=== PATIENT | female | born 1955 | race Caucasian/White ===

== ENCOUNTER 2022-05-26 19:44 | Observation (INO) | payer MEDICARE, OTHER, SELFPAY ==
[2022-05-26] VITALS (8 sets, daily range): BP systolic 154–168; BP diastolic 76–102; PULSE 82–96; RESP 13–26; TEMP 36.1–36.3; O2SAT 79–97; BMI 39.3
--- NOTE | 2022-05-26 20:01 | EKG12_ITS ---
Test Reason : DYSRHYTHMIA Blood Pressure : / mmHG Vent. Rate : 077 BPM Atrial Rate : 077 BPM P-R Int : 180 ms QRS Dur : 078 ms QT Int : 374 ms P-R-T Axes : 025 000 023 degrees QTc Int : 423 ms Normal sinus rhythm Septal infarct , age undetermined Abnormal ECG Confirmed by EULOGIO EDGAR, BRANDO ([id number]), editorial cartoonist JOSELITO SIMMS ([id number]) on 05/28/2022 10:06:56 AM Referred By: MELISSA Confirmed By:BRANDO KRISHNAN MD
--- NOTE | 2022-05-26 20:04 | EDS_ITS ---
HPI History of Present Illness Chief Complaint: Shortness of Breath Detail of Chief Complaint: Short of breath, cough Informant: patient Onset/Context/Timing Onset: Days (6 days) Context: Gradual Onset Current Severity: Moderate Maximum Severity: Moderate Narrative Narrative: Patient presents with shortness of breath and cough. Symptoms began 5 days ago. She has not measured a fever. No chest pain. She is bringing up green-colored sputum. She went to urgent care today where her O2 sats were noted to be 88%. She was sent to the emergency room. [facility] Medical History (Updated 05/27/22 @ 00:[address] Natalya Castro MD) Asthma DVT (deep venous thrombosis) GERD (gastroesophageal reflux disease) Hypothyroid Osteoporosis Pulmonary embolism Home Medications Eliquis 10 mg PO.IVFORM BID 05/26/22 [History Last Taken Unknown] Myrbetriq 25 mg PO/SL DAILY 05/26/22 [History Last Taken Unknown] calcium phosphate,dibasic 77 mg-vitamin D3 400 unit tablet 1 tab PO 05/26/22 [History Last Taken Unknown] clobetasol 0.05 % scalp solution 1 applic topical 05/26/22 [History Last Taken Unknown] diclofenac sodium 1 % topical gel 1 ea topical 05/26/22 [History Last Taken Unknown] duloxetine 20 mg capsule,delayed release mg PO 05/26/22 [History Last Taken Unknown] estradiol 0.1 mg OTHER QWEEK 05/26/22 [History Last Taken Unknown] fluticasone furoate 100 mcg-vilanterol 25 mcg/dose inhalation powder (Breo Ellipta) 1 inh inhalation DAILY 05/26/22 [History Last Taken Unknown] furosemide 20 mg tablet 20 mg PO PRN PRN water retention 05/26/22 [History Last Taken Unknown] hydrocortisone 2.5 % topical cream applic topical 05/26/22 [History Last Taken Unknown] ketoconazole 2 % topical cream 1 applic topical 05/26/22 [History Last Taken Unknown] levothyroxine 25 mcg tablet 25 mcg PO DAILY 05/26/22 [History Last Taken Unknown] losartan 50 mg tablet 50 mg PO DAILY 05/26/22 [History Last Taken Unknown] magnesium 250 mg tablet 250 mg PO DAILY 05/26/22 [History Last Taken Unknown] montelukast 10 mg tablet 10 mg PO DAILY 05/26/22 [History Last Taken Unknown] pantoprazole 40 mg tablet,delayed release 40 mg PO DAILY 05/26/22 [History Last Taken Unknown] potassium chloride 10 mEq tablet,extended release 10 meq PO PRN PRN suppliment 05/26/22 [History Last Taken Unknown] tiotropium bromide 18 mcg capsule with inhalation device (Spiriva with HandiHaler) 18 mcg inhalation 05/26/22 [History Last Taken Unknown] vitamin B12 500 mcg-folic acid 400 mcg tablet 1 tab PO DAILY 05/26/22 [History Last Taken Unknown] vitamin E (dl, acetate) 400 unit chewable tablet 400 unit PO 05/26/22 [History Last Taken Unknown] Allergy/AdvReac Type Severity Reaction Status Date / Time acetaminophen [From Percocet] Allergy Nausea Verified 05/26/22 20:12 erythromycin base Allergy Diarrhea Verified 05/26/22 20:12 oxycodone Allergy Nausea Verified 05/26/22 20:12 Social History Smoking Status: Never smoker ROS ROS ED Constitutional Constitutional ED: Denies chills or fever(s) Eyes Eyes: Denies change in vision or discharge from eye(s) ENT ENT ED: Denies discharge from eye(s), rhinorrhea or sore throat Cardiovascular Cardiovascular: Denies chest pain or palpitations Respiratory/Chest Respiratory/Chest: Reports cough, dyspnea, sputum and other Details: Chest congestion Gastrointestinal Gastrointestinal: Denies abdominal pain, diarrhea, nausea or vomiting Genitourinary Genitourinary ED: Denies dysuria Musculoskeletal Musculoskeletal: Denies back pain or extremity pain Integumentary Denies Abrasions or rash Neurologic Neurologic: Denies headache(s) or weakness Allergic/Immunologic Allergic/Immunologic ED: Denies lip swelling or urticaria EXAM Physical Exam Const Vital Signs: 05/26/22 19:46 05/26/22 20:03 05/26/22 20:08 Temperature 97 F L 97.3 F L Temperature Source Temporal Temporal Pulse Rate 90 82 Respiratory Rate 26 H 23 H Respiratory Effort Short of Breath Respiratory Depth Shallow Respiratory Pattern Normal Blood Pressure 164/102 H 168/91 H Blood Pressure Mean 122 116 Pulse Ox 84 95 Oxygen Delivery Method Room Air Nasal Cannula Nasal Cannula Oxygen Flow Rate (L/min) 4 4 05/26/22 21:00 05/26/22 20:37 05/26/22 20:37 Temperature Temperature Source Pulse Rate 89 93 Respiratory Rate 13 16 20 H Respiratory Effort Normal Short of Breath Respiratory Depth Shallow Respiratory Pattern Normal Normal Blood Pressure 154/76 H Blood Pressure Mean 102 Pulse Ox 94 97 Oxygen Delivery Method Nasal Cannula Nasal Cannula Oxygen Flow Rate (L/min) 4 3 05/26/22 21:16 05/26/22 21:16 05/26/22 22:10 Temperature Temperature Source Pulse Rate 96 Respiratory Rate 15 Respiratory Effort Respiratory Depth Respiratory Pattern Blood Pressure 164/86 H Blood Pressure Mean 112 Pulse Ox 79 95 96 Oxygen Delivery Method Room Air Room Air Nasal Cannula Oxygen Flow Rate (L/min) 3 3 05/26/22 22:59 Temperature Temperature Source Pulse Rate 92 Respiratory Rate 16 Respiratory Effort Respiratory Depth Respiratory Pattern Normal Blood Pressure Blood Pressure Mean Pulse Ox Oxygen Delivery Method Oxygen Flow Rate (L/min) Positive well nourished and well developed General Appearance ED: well developed HEENT Reports normocephalic and head/scalp atraumatic Eyes PERRL and EOMs intact bilaterally Neck supple Chest Wall inspection of chest normal and palpation of chest normal Resp Resp Narrative: Lung sounds diminished. Cardio regular rate and regular rhythm GI normal to inspection, nondistended, normoactive bowel sounds Palpation: soft Back/Spine no CVA tenderness Extremity normal to inspection Extremity Narrative: 2+ bilateral lower extremity edema. Increased edema noted over her feet, symmetric, at baseline per her report. Neuro oriented x3 and no sensory deficits noted Sensorium / Orientation: alert Motor Exam: strength 5/5 throughout Psych mental status grossly normal Skin no rashes or lesions noted MDM MDM MDM Narrative Medical decision making narrative: This time examination patient is on 2 L nasal cannula satting 89%. I turned her up to 3 L. Lab work, chest x-ray, blood cultures obtained. COVID and influenza swab ordered. Patient given DuoNeb along with aerosols. Lab Data Attestation: I reviewed the patient's lab results. Labs: Laboratory Results - last 24 hr 05/26/22 05/26/22 05/26/22 20:10 20:10 20:10 WBC 5.6 RBC 4.28 Hgb 13.2 Hct 40.0 MCV 93.5 MCH 30.8 MCHC 33.0 RDW Std Deviation 43.4 RDW Coeff of Kellen 12.6 Plt Count 162 MPV 8.9 Immature Gran % (Auto) 0.400 Neut % (Auto) 82.4 H Lymph % (Auto) 5.7 L Cecil % (Auto) 8.6 Eos % (Auto) 2.5 Baso % (Auto) 0.4 Absolute Neuts (auto) 4.6 Absolute Lymphs (auto) 0.32 L Nucleated RBC % 0 Differential Comment SCANNED Sodium 132 L Potassium 4.1 Chloride 96 L Carbon Dioxide 32.0 Anion Gap 4 L BUN 7 Creatinine 0.40 L Estim Creat Clear Calc 43.18 Est GFR (MDRD) Af Amer 206 Est GFR (MDRD) Non-Af 170 BUN/Creatinine Ratio 17.6 Glucose 98 Lactic Acid 0.6 Calcium 9.0 Troponin I High Sens 11 Radiography Chest X-Ray - ED: 1 View, Read by ED Physician, Chronic Changes and - (Questionable left-sided infiltrate versus scarring.) Diagnostic Testing: Clinical Impression(s) from Imaging Studies Chest X-Ray 05/26/22 21:08 IMPRESSION: 1. Asymmetric elevation right hemidiaphragm with overlying airspace disease, mild, most likely representing atelectasis with alveolar filling process not excluded. 2. Linear opacity periphery left lung highly suggestive of atelectasis and/or scarring. Electronically Signed: Uriah Frazier DO at 22:13 EDT , EKG Initial EKG: Attestation: I personally reviewed and interpreted this EKG as follows: Interpretation: Sinus Rhythm (Sinus at 77 with no acute ischemia.) Treatment and Re-Evaluation Narrative: Following aerosol treatments patient's O2 sat was around 91% on room air. While sitting at rest she dropped to 79% and had to be placed back on 3 L nasal cannula. Lab work is unremarkable. Chest x-ray per my interpretation was chronic changes. Radiology interpretation is reviewed. EKG reveals no ischemia. Patient does have some improved aeration on auscultation. She still has moist sounding cough. She is given a dose of Mucinex as well as steroids. 2 additional albuterol treatments are given and patient sent for CTA of the chest. On return to the ED from CAT scan patient is lying flat in bed with her oxygen on. Her O2 sat dropped to 72%. This did improve when sitting upright taking deep breaths. There is currently difficulty in transferring the radiology images. I reviewed the CT scan I do not see an obvious PE. It does appear that there is an area of scarring in the left lung, I do not like this is a focal infiltrate. With patient dropping her O2 sats significantly I do feel she would benefit from observation with aerosol treatments and steroids. I will give her a single dose of doxycycline here along with Elisabeth Sam. Discharge Plan Triage Chief Complaint: Shortness of Breath ED Provider: Natalya Castro Dx/Rx/DC Orders Clinical Impression: Asthma exacerbation, Insufficiency, respiratory, acute, URI (upper respiratory infection) Prescriptions: No Action levothyroxine 25 mcg Tablet 25 mcg PO DAILY pantoprazole 40 mg Tablet,Delayed Release (Dr/Ec) 40 mg PO DAILY vitamin E (dl, acetate) 400 unit Tablet,Chewable 400 unit PO fluticasone furoate-vilanterol [Breo Ellipta] 100-25 mcg/dose Blister With Device 1 inh INHALATION DAILY Eliquis 10 mg PO.IVFORM BID Myrbetriq 25 mg PO/SL DAILY Vitamin D (with calcium) 77-400 mg-unit Tablet 1 tab PO vitamin [id number] acid 500-400 mcg Tablet 1 tab PO DAILY Rx Instructions: administer with a meal losartan 50 mg tablet 50 mg PO DAILY Label Comments: TAKE 1 TABLET BY MOUTH EVERY DAY potassium chloride 10 mEq Tablet Extended Release 10 meq PO PRN PRN (Reason: suppliment) hydrocortisone 2.5 % cream TOPICAL Label Comments: Apply to affected AREAS ON face AND ears TWICE DAILY FOR FOURTEEN DAYS when flared montelukast 10 mg tablet 10 mg PO DAILY Label Comments: TAKE 1 TABLET BY MOUTH EVERY DAY magnesium 250 mg Tablet 250 mg PO DAILY furosemide 20 mg Tablet 20 mg PO PRN PRN (Reason: water retention) ketoconazole 2 % cream 1 applic TOPICAL Label Comments: Apply TWICE DAILY to rash clobetasol 0.05 % solution 1 applic TOPICAL Label Comments: Apply TWICE DAILY to SCALP, ears, AND neck FOR FOURTEEN DAYS then WEDNESDAY, WEDNESDAY, WEDNESDAY Spiriva with HandiHaler 18 mcg capsule, w/inhalation device 18 mcg INHALATION Label Comments: PLEASE SEE ATTACHED FOR DETAILED DIRECTIONS duloxetine 20 mg capsule,delayed release(DR/EC) PO Label Comments: TAKE 2 CAPSULES BY MOUTH AT BEDTIME diclofenac sodium [Voltaren] 1 % Gel 1 ea TOPICAL estradiol 0.1 mg OTHER QWEEK Primary Care Provider: [facility] Doctor,Out of Referrals: [facility] Doctor,Out of [Primary Care Provider] - Disposition Disposition: Acute Care Hospital [facility]
[2022-05-26 20:27] LABS: Absolute Lymphocyte Count 0.32 X10^3/uL (0.83-4.51); Absolute Neutrophil Count 4.6 X10^3/uL (2.0-7.7); Basophil# 0.02 X10^3/uL; Basophil% 0.4 % (0-1); Eosinophil# 0.14 X10^3/uL; Eosinophils% 2.5 % (0-5); Hemoglobin 13.2 g/dL (12.0-15.0); Lymphocyte # 0.32 X10^3/ul (0.83-4.51); Lymphocyte % 5.7 % (19-41); Mean Corpuscular Hgb 30.8 pg (27.0-32.0); Mean Corpuscular Volume 93.5 fL (81-99); Mean Platelet Vol. 8.9 fl (6.2-12.0); Monocyte# 0.48 X10^3/uL; Monocyte% 8.6 % (0-10); NRBC Flagged by Analyzer 0 % (0-5); Neutrophil # 4.61 X10^3/uL (2.7-7.7); Neutrophil % 82.4 % (47-70); POSITIVE DIFFERENTIAL YES; Platelet Count 162 K/mm3 (150-450); RBC Distribution Width CV 12.6 % (11.6-14.6); RBC Distribution Width SD 43.4 fl (35.1-43.9); Red Blood Count 4.28 M/mm3 (4.2-5.4); White Blood Count 5.6 K/mm3 (4.4-11.0)
[2022-05-26] MEDS: Ipratropium/Albuterol Sulfate 3 ML AMPUL.NEB INHALATION (20:37)
[2022-05-26] MEDS: Albuterol 2.5 MG/3 ML VIAL.NEB. INHALATION ×4 (20:37→23:06)
[2022-05-26 20:51] LABS: Anion Gap 4 (5-15); BUN 7 mg/dL (7-18); BUN/Creat Ratio 17.6 RATIO (10-20); Chloride 96 mmol/L (98-107); EST Glomerular Filtration Rate 170 mL/min (>60); Est Glom Filt Rate - Afr Amer 206 mL/min (>60); Estimated Creatinine Clearance 43.18 ml/min; Glucose 98 mg/dL (74-106); Lactic Acid 0.6 mmol/L (0.4-1.9); Potassium 4.1 mmol/L (3.5-5.1); Sodium Level 132 mmol/L (136-145); Troponin-I HS 11 pg/mL (3.0-54.0)
[2022-05-26 20:52] LABS: Differential Indicated SCAN CRITERIA MET
--- NOTE | 2022-05-26 21:08 | RAD_ITS ---
INDICATION: sob EXAMINATION/TECHNIQUE: X-RAY - XR Chest 1 View COMPARISON: None. FINDINGS: LINES/DEVICES: None. LUNGS: Asymmetric elevation right hemidiaphragm. Airspace disease overlying the right elevated hemidiaphragm likely representing atelectasis though alveolar filling process not excluded. Lateral periphery left lung shows thin linear opacity highly suggestive of atelectasis and/or scarring. No pleural effusion, nodule or pneumothorax. MEDIASTINUM AND CARDIOVASCULAR STRUCTURES: Normal size and contour of the cardiomediastinal silhouette. No evidence of pulmonary vascular congestion. BONES AND SOFT TISSUES: Bony exostosis inferior acromion on the right may be associated with impingement. Significant lateral curvature proximal lumbar spine, partially visualized. RAD/Chest 1 View (Portable) IMPRESSION: 1. Asymmetric elevation right hemidiaphragm with overlying airspace disease, mild, most likely representing atelectasis with alveolar filling process not excluded. 2. Linear opacity periphery left lung highly suggestive of atelectasis and/or scarring. Electronically Signed: Uriah Frazier DO at 22:13 EDT ,
--- NOTE | 2022-05-26 21:11 | CPS ---
x2 Albuterol given to pt. in ER as well
--- NOTE | 2022-05-26 21:16 | ED.RN ---
Pt resting in bed at 79% on RA. Placed on 6L NC and brought up to 96%. Maintained 93-95% on 3L.
[2022-05-26 21:18] LABS: Differential Comment SCANNED
--- NOTE | 2022-05-26 22:21 | CT_ITS ---
STUDY: CTA CHEST REASON FOR EXAM: Female, 66 years old. dyspnea RADIATION DOSAGE (If Supplied By Facility): CTDIvol = ( 29.23 ) mGy, DLP = ( 524.13 ) mGycm TECHNIQUE: The examination was performed with the intravenous administration of IV 100mL Isovue-370. Post-processing of the angiographic images was performed, with multiplanar reformation and 3D reconstruction. Individualized dose optimization techniques were used for this CT. COMPARISON: None. FINDINGS: Normal enhancement of the main pulmonary artery and right and left pulmonary arteries. Normal enhancement of the bilateral peripheral pulmonary arteries. There is no demonstrated pulmonary embolism. Normal thoracic aorta and visualized great vessels. There is no demonstrated aortic dissection. Mild cardiomegaly. Normal pericardium. Normal mediastinum. Normal hilar regions. Normal visualized trachea and bronchi. The lungs are well expanded. Patchy airspace disease in the right lung base, likely chronic in nature as there is moderately elevated right hemidiaphragm. Otherwise, the lungs are clear without acute airspace disease, consolidation or effusion. Normal pleura. Normal chest wall structures. Normal osseous structures. Normal visualized upper abdomen. Nonenhancing right renal cyst. CT/CTA Chest W/WO Contrast IMPRESSION: Normal CTA chest examination, without a demonstrated pulmonary embolism or arterial dissection. No acute airspace disease. Elevated right hemidiaphragm with chronic atelectasis and/or scarring in the right lung base Electronically Signed: Kp Ann DO at 0:45 EDT ,
--- NOTE | 2022-05-26 23:15 | CPS ---
x1 additional albuterol given to pt. in ER as well
[2022-05-26] MEDS: guaiFENesin 1,200 MG Tablet 1200 MG PO (23:23)
[2022-05-26] MEDS: MethylPREDNISolone 125 MG/2 ML Vial IV (23:25)
[2022-05-26] MEDS: Benzonatate 100 MG Capsule 200 MG PO (23:55)
[2022-05-26] MEDS: Doxycycline 100 MG CAPSULE PO (23:55)
[2022-05-27] VITALS (12 sets, daily range): BP systolic 140–168; BP diastolic 72–89; PULSE 86–103; RESP 16–24; TEMP 36.6–37.5; O2SAT 2–96; BMI 39.9
--- NOTE | 2022-05-27 00:11 | HP.PCM.HOS_ITS ---
HPI - General General Date of Admission: 05/27/22 Date of Service: 05/27/22 Chief Complaint: Cold symptoms HPI Narrative MARILOU POWELL, is a 66 F with a significant history of pulmonary emboli and asthma who presents to the emergency department with cold symptoms that started 4 days prior to presentation. Her symptoms has been worsening. She describes her symptoms as nasal congestion; cough with greenish productive cough. She vomited x1. She reports a sore throat and chest pain associated with cough. She has had some shortness of breath; and some chills. She has had increased wheezes above her baseline. Patient is visiting from [place]. She went to urgent care at the [facility] and her oxygen saturation was found to be 88% on room air. At Emergency Department her initial oxygen saturation was 84% on room air. At one point while in bed at the ED her oxygen saturation was 79%. Also her oxygen saturation was 72% while in bed supine at the ED. At home patient uses 2 L of oxygen. Patient has sleep apnea but she has not be en able to tolerate mask so her outpatient providers decided to leave her on 2 L nasal cannula oxygen at night [facility] Medical History Asthma DVT (deep venous thrombosis) GERD (gastroesophageal reflux disease) Hypothyroid Osteoporosis Pulmonary embolism Home Medications Eliquis 10 mg PO.IVFORM BID 05/26/22 [History Last Taken Unknown] Myrbetriq 25 mg PO/SL DAILY 05/26/22 [History Last Taken Unknown] diclofenac sodium 1 % topical gel 1 ea topical 05/26/22 [History Last Taken Unknown] duloxetine 20 mg capsule,delayed release mg PO 05/26/22 [History Last Taken Unknown] estradiol 0.1 mg OTHER QWEEK 05/26/22 [History Last Taken Unknown] fluticasone furoate 100 mcg-vilanterol 25 mcg/dose inhalation powder (Breo Ellipta) 1 inh inhalation DAILY 05/26/22 [History Last Taken Unknown] furosemide 20 mg tablet 20 mg PO PRN PRN water retention 05/26/22 [History Last Taken Unknown] ketoconazole 2 % topical cream 1 applic topical 05/26/22 [History Last Taken Unknown] levothyroxine 25 mcg tablet 25 mcg PO DAILY 05/26/22 [History Last Taken Un known] losartan 50 mg tablet 50 mg PO DAILY 05/26/22 [History Last Taken Unknown] montelukast 10 mg tablet 10 mg PO DAILY 05/26/22 [History Last Taken Unknown] pantoprazole 40 mg tablet,delayed release 40 mg PO DAILY 05/26/22 [History Last Taken Unknown] potassium chloride 10 mEq tablet,extended release 10 meq PO PRN PRN suppliment 05/26/22 [History Last Taken Unknown] tiotropium bromide 18 mcg capsule with inhalation device (Spiriva with HandiHaler) 18 mcg inhalation 05/26/22 [History Last Taken Unknown] vitamin B12 500 mcg-folic acid 400 mcg tablet 1 tab PO DAILY 05/26/22 [History Last Taken Unknown] vitamin E (dl, acetate) 400 unit chewable tablet 400 unit PO 05/26/22 [History Last Taken Unknown] Allergy/AdvReac Type Severity Reaction Status Date / Time acetaminophen [From Percocet] Allergy Nausea Verified 05/26/22 20:12 erythromycin base Allergy Diarrhea Verified 05/26/22 20:12 oxycodone Allergy Nausea Verified 05/26/22 20:12 Family History Other CVA (cerebral vascular accident) Cancer Surgical History H/O knee surgery H/O shoulder surgery History of bladder surgery History of hip surgery Social History Smoking Status: Never smoker ROS ROS Narrative Pertinent positives and pertinent negatives as noted in HPI. All other systems were reviewed and are negative. Vital Signs Vital Signs Vital Signs: 05/26/22 19:46 05/26/22 20:03 05/26/22 20:08 Temperature 97 F L 97.3 F L Temperature Source Temporal Temporal Pulse Rate 90 82 Respiratory Rate 26 H 23 H Respiratory Effort Short of Breath Respiratory Depth Shallow Respiratory Pattern Normal Blood Pressure 164/102 H 168/91 H Blood Pressure Mean 122 116 Pulse Ox 84 95 Oxygen Delivery Method Room Air Nasal Cannula Nasal Cannula Oxygen Flow Rate (L/min) 4 4 05/26/22 21:00 05/26/22 20:37 05/26/22 20:37 Temperature Temperature Source Pulse Rate 89 93 Respiratory Rate 13 16 20 H Respiratory Effort Normal Short of Breath Respiratory Depth Shallow Respiratory Pattern Normal Normal Blood Pressure 154/76 H Blood Pressure Mean 102 Pulse Ox 94 97 Oxygen Delivery Method Nasal Cannula Nasal Cannula Oxygen Flow Rate (L/min) 4 3 05/26/22 21:16 05/26/22 21:16 05/26/22 22:10 Temperature Temperature Source Pulse Rate 96 Respiratory Rate 15 Respiratory Effort Respiratory Depth Respiratory Pattern Blood Pressure 164/86 H Blood Pressure Mean 112 Pulse Ox 79 95 96 Oxygen Delivery Method Room Air Room Air Nasal Cannula Oxygen Flow Rate (L/min) 3 3 05/26/22 22:59 Temperature Temperature Source Pulse Rate 92 Respiratory Rate 16 Respiratory Effort Respiratory Depth Respiratory Pattern Normal Blood Pressure Blood Pressure Mean Pulse Ox Oxygen Delivery Method Oxygen Flow Rate (L/min) Weight Weight: 97.522 kg Body Mass Index (BMI) 39.3 Physical Exam Narrative Physical exam: General: Well-nourished, well-developed. Head: Normocephalic, atraumatic, no tenderness Eyes: Vision is grossly intact. EOMI ENT, no trauma, moist mucous membranes, no rhinorrhea Neck: Nontender, full range of motion. CVS: Regular rate and rhythm. S1-S2 present. No murmur, gallop or rub. Respiratory : Wheezing; chest wall nontender. Abdomen: Soft, nontender, nondistended, normal bowel sounds, no masses : Deferred Back: Nontender, no CVA tenderness. Extremities: Nontender full range of motion, no trauma Skin: Normal color, no trauma, abrasions Neuro: Alert, oriented, cranial nerves II through XII grossly intact. Psychiatry: Normal mood. Normal affect. Not depressed. Not anxious. Results Lab / Micro Data Result Diagrams: 05/26/22 20:10 05/26/22 20:10 Labs: Laboratory Results - last 24 hr 05/26/22 20:10: WBC 5.6, RBC 4.28, Hgb 13.2, Hct 40.0, MCV 93.5, MCH 30.8, MCHC 33.0, RDW Std Deviation 43.4, RDW Coeff of Kellen 12.6, Plt Count 162, MPV 8.9, Immature Gran % (Auto) 0.400, Neut % (Auto) 82.4 H, Lymph % (Auto) 5.7 L, Hutchinson % (Auto) 8.6, Eos % (Auto) 2.5, Baso % (Auto) 0.4, Absolute Neuts (auto) 4.6, Absolute Lymphs (auto) 0.32 L, Nucleated RBC % 0, Differential Comment SCANNED 05/26/22 20:10: Sodium 132 L, Potassium 4.1, Chloride 96 L, Carbon Dioxide 32.0, Anion Gap 4 L, BUN 7, Creatinine 0.40 L, Estim Creat Clear Calc 43.18, Est GFR (MDRD) Af Amer 206, Est GFR (MDRD) Non-Af 170, BUN/Creatinine Ratio 17.6, Glucose 98, Calcium 9.0, Troponin I High Sens 11 05/26/22 20:10: Lactic Acid 0.6 Micro: Microbiology 05/26/22 20:15 Nasal Secretion SARS-CoV-2 & FLU Antigen (Rapid) - Final Radiology Impression Chest X-Ray 05/26/22 21:08 IMPRESSION: 1. Asymmetric elevation right hemidiaphragm with overlying airspace disease, mild, most likely representing atelectasis with alveolar filling process not excluded. 2. Linear opacity periphery left lung highly suggestive of atelectasis and/or scarring. Electronically Signed: Uriah Frazier, at 22:13 EDT , Assessment & Plan Assessment/Plan (1) Asthma exacerbation: (2) URI (upper respiratory infection): PLAN: Plan Asthma exacerbation/URI CXR and CTA was visualized and independently interpreted and I agree with radiology interpretation of right diaphragm elevation but with no acute cardiopulmonary process. Scheduled DuoNeb Albuterol as needed Solu-Medrol ordered Mucinex and cepacol lozenges ordered Titrate oxygen to keep oxygen saturation to at least 90%. Chest physiotherapy and incentive spirometer ordered. Monitor BMP and CBC Bilateral leg edema On home lasix prn. Order as daily for now Elevated blood pressure PRN Hydralazine ordered. DVT Prophylaxis: Home eliquis for PE continued. Charges/Coding Visit Charges OBSV E&M: 06825 Initial observation care L3
[2022-05-27] MEDS: Ondansetron ODT 4 MG Tablet PO (00:49)
[2022-05-27 05:26] LABS: Absolute Lymphocyte Count 0.13 X10^3/uL (0.83-4.51); Basophil# 0.01 X10^3/uL; Basophil% 0.2 % (0-1); Hematocrit 41.4 % (37-47); Hemoglobin 13.6 g/dL (12.0-15.0); Lymphocyte # 0.13 X10^3/ul (0.83-4.51); Lymphocyte % 2.1 % (19-41); Mean Corp Hgb Conc 32.9 g/dL (32-36); Mean Corpuscular Hgb 30.8 pg (27.0-32.0); Mean Corpuscular Volume 93.9 fL (81-99); Monocyte# 0.15 X10^3/uL; Monocyte% 2.4 % (0-10); NRBC Flagged by Analyzer 0 % (0-5); Neutrophil # 6.01 X10^3/uL (2.7-7.7); Neutrophil % 94.8 % (47-70); POSITIVE DIFFERENTIAL YES; Platelet Count 156 K/mm3 (150-450); RBC Distribution Width CV 12.6 % (11.6-14.6); RBC Distribution Width SD 43.4 fl (35.1-43.9); Red Blood Count 4.41 M/mm3 (4.2-5.4); White Blood Count 6.3 K/mm3 (4.4-11.0)
[2022-05-27] MEDS: Levothyroxine 25 MCG TABLET PO (05:30)
[2022-05-27] MEDS: 0.9% Saline Lock 10 ML Syringe IV ×3 (05:30→10:15)
[2022-05-27 05:32] LABS: Differential Indicated SCAN CRITERIA MET
[2022-05-27 05:48] LABS: Anion Gap 2 (5-15); BUN 5 mg/dL (7-18); BUN/Creat Ratio 10.4 RATIO (10-20); Calcium,Total 8.8 mg/dL (8.5-10.1); Chloride 97 mmol/L (98-107); Creatinine, Serum 0.48 mg/dL (0.55-1.02); EST Glomerular Filtration Rate 137 mL/min (>60); Est Glom Filt Rate - Afr Amer 166 mL/min (>60); Estimated Creatinine Clearance 43.18 ml/min; Glucose 190 mg/dL (74-106); Sodium Level 133 mmol/L (136-145)
[2022-05-27 06:47] LABS: Differential Comment SCANNED
[2022-05-27] MEDS: Ipratropium/Albuterol Sulfate 3 ML AMPUL.NEB INHALATION ×3 (06:55→15:46)
[2022-05-27] MEDS: guaiFENesin 1,200 MG Tablet 1200 MG PO (09:12)
[2022-05-27] MEDS: Mirabegron 25 MG TAB.ER.24H PO (09:13)
[2022-05-27] MEDS: Losartan Potassium 50 MG Tablet PO (09:13)
[2022-05-27] MEDS: APIXABAN 5 MG TABLET PO (09:13)
[2022-05-27] MEDS: Furosemide 20 MG Tablet PO (09:13)
[2022-05-27] MEDS: Pantoprazole Sodium 40 MG Tablet PO (09:13)
[2022-05-27] MEDS: Furosemide 40 MG/4 ML Vial IV (10:14)
--- NOTE | 2022-05-27 10:31 | CASEMGMT ---
Hugo olvera is on home oxygen 2L at bedtime thru [facility] in [place], where she lives. Hugo olvera is here visiting family and is renting a POC from [employer] [facility]. Pt states plan was to drive home tomorrow. Pt is possibly interested in buying a POC for traveling purposes. Pt does currently qualify for 2L continuous at discharge but was also just given lasix IV. Call to [facility] and they state that pt's order is for 2L continuous but that pt's portability was picked up in 09/2021 so only has concentrator at home. Per rep, pt will need new order faxed for 2L continuous so that pt can be set up with portability once returns home. Call to [employer] [facility] and per Octavia, pt's rental of POC is good till 06/01/22 and if she needs to extend it, it will be $300/month and they will need to mail POC back. If pt wants to buy a POC, she can buy the 'gently used' one she is renting for $2000 or a brand new one for $3184. Pt updated on all, voices understanding. Pt is aware that she will need to rent or buy one to get home at this point, voices understanding. CM to f/u with pt once arrives. SStalexandra GUALLPA CM
--- NOTE | 2022-05-27 11:08 | PCM.DC ---
Discharge Instructions Diet Discharge Diet: Low fat / Low cholesterol and 2000 mg Sodium Diet Activity Discharge Activity: Return to Normal Activity Weight Bearing Status: Weight bearing as tolerated Follow Up Care Test Results: Test results from this visit will be discussed in further detail at your follow-up appointment, if applicable. Discharge Plan Admission Admit Date/Time: 05/27/22 00:06 Primary Reason for Your Visit: Acute asthma exacerbation Attending Provider: Savanna Turner Primary Care Provider: NIA RICHTER Consulting Providers: Brandyn Dang Instructions Additional Instructions / Restrictions: Complete your steroid taper. Continue to use oxygen all the time Continue to use incentive spirometer Discharge Orders/Prescriptions Prescriptions: New Mucus Relief ER 1,200 mg Tablet Extended Release 12hr 1,200 mg PO BID PRN (Reason: Cough) 7 Days Qty: 14 0RF prednisone 10 mg tablet 10 mg PO DAILY Qty: 30 0RF Continued levothyroxine 25 mcg Tablet 25 mcg PO DAILY pantoprazole 40 mg Tablet,Delayed Release (Dr/Ec) 40 mg PO DAILY vitamin E (dl, acetate) 400 unit Tablet,Chewable 400 unit PO DAILY fluticasone furoate-vilanterol [Breo Ellipta] 100-25 mcg/dose Blister With Device 1 inh INHALATION DAILY Eliquis 10 mg PO.IVFORM BID Myrbetriq 25 mg PO/SL DAILY vitamin R88-mmmnj acid 500-400 mcg Tablet 1 tab PO QODAY Rx Instructions: administer with a meal losartan 50 mg tablet 50 mg PO DAILY Label Comments: TAKE 1 TABLET BY MOUTH EVERY DAY potassium chloride 10 mEq Tablet Extended Release 10 meq PO PRN PRN (Reason: supplement ) montelukast 10 mg tablet 10 mg PO DAILY Label Comments: TAKE 1 TABLET BY MOUTH EVERY DAY furosemide 20 mg Tablet 20 mg PO PRN PRN (Reason: water retention) ketoconazole 2 % cream 1 applic TOPICAL QMWF Label Comments: Apply TWICE DAILY to rash Spiriva with HandiHaler 18 mcg capsule, w/inhalation device 18 mcg INHALATION DAILY Label Comments: PLEASE SEE ATTACHED FOR DETAILED DIRECTIONS duloxetine 20 mg capsule,delayed release(DR/EC) 40 mg PO QHS Label Comments: TAKE 2 CAPSULES BY MOUTH AT BEDTIME diclofenac sodium 1 % Gel 1 ea TOPICAL DAILY estradiol 0.1 mg OTHER QWEEK PRN (Reason: vaginal irritation ) Referrals / Follow Up: NIA RICHTER [[facility]] [facility] Doctor,Out of [Non-Staff] - Disposition Disposition (needs filled in before D/C Order can be placed): Home, Self Care
--- NOTE | 2022-05-27 11:10 | PCM.DC.SUM ---
Providers Date of Admission: 05/27/22 Date of Discharge: 05/27/22 Primary Care Physician: NIA RICHTER Reason For Visit: asthma exacerbation Diagnosis Discharge Diagnosis (1) Asthma exacerbation: Status: Acute Code(s): J45.901 - Unspecified asthma with (acute) exacerbation (2) URI (upper respiratory infection): Status: Acute Code(s): J06.9 - Acute upper respiratory infection, unspecified Medications at Discharge Home Medications Myrbetriq 25 mg PO/SL DAILY bladder 05/26/22 diclofenac sodium 1 % topical gel 1 ea topical DAILY arthritis 05/26/22 duloxetine 20 mg capsule,delayed release 40 mg PO QHS arthritis 05/26/22 estradiol 0.1 mg OTHER QWEEK PRN vaginal irritation 05/26/22 fluticasone furoate 100 mcg-vilanterol 25 mcg/dose inhalation powder (Breo Ellipta) 1 inh inhalation DAILY asthma 05/26/22 furosemide 20 mg tablet 20 mg PO PRN PRN water retention 05/26/22 ketoconazole 2 % topical cream 1 applic topical QMWF dry skin 05/26/22 levothyroxine 25 mcg tablet 25 mcg PO DAILY hypothyroidism 05/26/22 losartan 50 mg tablet 50 mg PO DAILY blood pressure 05/26/22 montelukast 10 mg tablet 10 mg PO DAILY asthma 05/26/22 pantoprazole 40 mg tablet,delayed release 40 mg PO DAILY indigestion 05/26/22 potassium chloride 10 mEq tablet,extended release 10 meq PO PRN PRN supplement 05/26/22 tiotropium bromide 18 mcg capsule with inhalation device (Spiriva with HandiHaler) 18 mcg inhalation DAILY asthma 05/26/22 vitamin B12 500 mcg-folic acid 400 mcg tablet 1 tab PO QODAY supplement 05/26/22 vitamin E (dl, acetate) 400 unit chewable tablet 400 unit PO DAILY supplement 05/26/22 apixaban 5 mg tablet (Eliquis) 5 mg PO BID #0 tabs 05/27/22 benzonatate 100 mg capsule 100 mg PO Q4H PRN PRN cough 7 days #21 caps 05/27/22 prednisone 10 mg tablet See Taper PO DAILY 12 days #12 tabs 05/27/22 Hospital Course Operations None Procedures None Summary of Care Provided Minutes Spent on Discharge: 35 Hospital Course: Is a 69-year-old female past medical history of asthma, pulmonary emboli, on Eliquis, obstructive sleep apnea on 2 L of oxygen at night, who presented with upper respiratory symptoms that started 4 days prior to admission. Patient admitted that she had nasal congestion, cough productive of greenish sputum, sore throat and chest discomfort. She was seen at the urgent care and her oxygen saturation was 88% on room air. She was sent to the emergency room. In the emergency room, she was found to be hypoxic. Her admitting chest x-ray was unremarkable. CTA of the chest was also unremarkable. Patient was started on IV steroids and breathing treatment. She improved, and was on 2 L of oxygen. She was discharged on prednisone taper. She was continued on Apixaban. Physical Exam Narrative Physical exam: General: Alert, Oriented x3, Cooperative, on 2 L of oxygen, morbidly obese HEENT: Atraumatic Oral: Moist Mucosa Neck: Supple Lungs: Diminished to auscultation Cardiovascular: HS I+II, regular, no murmurs Abdomen: Bowel Sounds Present, Soft, Non Tender Extremities: No bilateral leg edema Skin: No rashes, No breakdown Neurological: Grossly intact Psych/Mental Status: Appropriate Weight / BMI Weight Weight: 99.2 kg Body Mass Index (BMI) 39.9 ABG / Lab / Microbiology Data Result Diagrams: 05/27/22 04:48 05/27/22 04:48 Laboratory: Laboratory Results - last 24 hr 05/26/22 20:10: WBC 5.6, RBC 4.28, Hgb 13.2, Hct 40.0, MCV 93.5, MCH 30.8, MCHC 33.0, RDW Std Deviation 43.4, RDW Coeff of Kellen 12.6, Plt Count 162, MPV 8.9, Immature Gran % (Auto) 0.400, Neut % (Auto) 82.4 H, Lymph % (Auto) 5.7 L, Meeker % (Auto) 8.6, Eos % (Auto) 2.5, Baso % (Auto) 0.4, Absolute Neuts (auto) 4.6, Absolute Lymphs (auto) 0.32 L, Nucleated RBC % 0, Differential Comment SCANNED 05/26/22 20:10: Sodium 132 L, Potassium 4.1, Chloride 96 L, Carbon Dioxide 32.0, Anion Gap 4 L, BUN 7, Creatinine 0.40 L, Estim Creat Clear Calc 43.18, Est GFR (MDRD) Af Amer 206, Est GFR (MDRD) Non-Af 170, BUN/Creatinine Ratio 17.6, Glucose 98, Calcium 9.0, Troponin I High Sens 11 05/26/22 20:10: Lactic Acid 0.6 05/27/22 04:48: WBC 6.3, RBC 4.41, Hgb 13.6, Hct 41.4, MCV 93.9, MCH 30.8, MCHC 32.9, RDW Std Deviation 43.4, RDW Coeff of Kellen 12.6, Plt Count 156, MPV 9.0, Immature Gran % (Auto) 0.500, Neut % (Auto) 94.8 H, Lymph % (Auto) 2.1 L, Meeker % (Auto) 2.4, Eos % (Auto) 0.0, Baso % (Auto) 0.2, Absolute Neuts (auto) 6.0, Absolute Lymphs (auto) 0.13 L, Nucleated RBC % 0, Differential Comment SCANNED 05/27/22 04:48: Sodium 133 L, Potassium 4.0, Chloride 97 L, Carbon Dioxide 34.0 H, Anion Gap 2 L, BUN 5 L, Creatinine 0.48 L, Estim Creat Clear Calc 43.18, Est GFR (MDRD) Af Amer 166, Est GFR (MDRD) Non-Af 137, BUN/Creatinine Ratio 10.4, Glucose 190 H, Calcium 8.8 Microbiology: Microbiology 05/26/22 20:15 Nasal Secretion SARS-CoV-2 & FLU Antigen (Rapid) - Final Radiography Diagnostic Testing: Radiology Impression Chest X-Ray 05/26/22 21:08 IMPRESSION: 1. Asymmetric elevation right hemidiaphragm with overlying airspace disease, mild, most likely representing atelectasis with alveolar filling process not excluded. 2. Linear opacity periphery left lung highly suggestive of atelectasis and/or scarring. Electronically Signed: Uriah Frazier DO at 22:13 EDT , Chest CTA 05/26/22 22:21 IMPRESSION: Normal CTA chest examination, without a demonstrated pulmonary embolism or arterial dissection. No acute airspace disease. Elevated right hemidiaphragm with chronic atelectasis and/or scarring in the right lung base Electronically Signed: Kp Ann DO at 0:45 EDT , D/C Instructions Discharge Diet: Low fat / Low cholesterol and 2000 mg Sodium Diet Weight Bearing Status: Weight bearing as tolerated Meaningful Use Info Meaningful Use Diagnoses (Choose all that apply): None applicable Discharge Plan Admission Admit Date/Time: 05/27/22 00:06 Primary Reason for Your Visit: Acute asthma exacerbation Attending Provider: Savanna Turner Primary Care Provider: NIA RICHTER Consulting Providers: Brandyn Dang Instructions Additional Instructions / Restrictions: Complete your steroid taper. Continue to use oxygen all the time Continue to use incentive spirometer Discharge Orders/Prescriptions Prescriptions: New Eliquis 5 mg Tablet 5 mg PO BID Qty: 0 0RF benzonatate 100 mg Capsule 100 mg PO Q4H PRN PRN (Reason: cough) 7 Days Qty: 21 0RF prednisone 10 mg tablet See Taper PO DAILY 12 Days Qty: 12 0RF Taper: Prednisone Taper 40 mg WITH BREAKFAST for 3 Days and 0 Hour 30 mg WITH BREAKFAST for 3 Days and 0 Hour 20 mg WITH BREAKFAST for 3 Days and 0 Hour 10 mg WITH BREAKFAST for 3 Days and 0 Hour Continued levothyroxine 25 mcg Tablet 25 mcg PO DAILY pantoprazole 40 mg Tablet,Delayed Release (Dr/Ec) 40 mg PO DAILY vitamin E (dl, acetate) 400 unit Tablet,Chewable 400 unit PO DAILY fluticasone furoate-vilanterol [Breo Ellipta] 100-25 mcg/dose Blister With Device 1 inh INHALATION DAILY Myrbetriq 25 mg PO/SL DAILY vitamin E24-iioms acid 500-400 mcg Tablet 1 tab PO QODAY Rx Instructions: administer with a meal losartan 50 mg tablet 50 mg PO DAILY Label Comments: TAKE 1 TABLET BY MOUTH EVERY DAY potassium chloride 10 mEq Tablet Extended Release 10 meq PO PRN PRN (Reason: supplement ) montelukast 10 mg tablet 10 mg PO DAILY Label Comments: TAKE 1 TABLET BY MOUTH EVERY DAY furosemide 20 mg Tablet 20 mg PO PRN PRN (Reason: water retention) ketoconazole 2 % cream 1 applic TOPICAL QMWF Label Comments: Apply TWICE DAILY to rash Spiriva with HandiHaler 18 mcg capsule, w/inhalation device 18 mcg INHALATION DAILY Label Comments: PLEASE SEE ATTACHED FOR DETAILED DIRECTIONS duloxetine 20 mg capsule,delayed release(DR/EC) 40 mg PO QHS Label Comments: TAKE 2 CAPSULES BY MOUTH AT BEDTIME diclofenac sodium 1 % Gel 1 ea TOPICAL DAILY estradiol 0.1 mg OTHER QWEEK PRN (Reason: vaginal irritation ) Discontinued Eliquis 10 mg PO.IVFORM BID Referrals / Follow Up: [facility] [Other] [facility] Doctor,Out of [Non-Staff] - Disposition Disposition (needs filled in before D/C Order can be placed): Home, Self Care Charges/Coding Visit Charges Inpatient E&M: 25088 Disch Hosp
[2022-05-27] MEDS: Benzonatate 100 MG Capsule PO (11:49)
--- NOTE | 2022-05-27 12:36 | NURSING ---
[employer] called nurse to come see pt d/t duskiness and persistant cough.pt denies any choking on food or drink. pt just had tessolon perle and aerosol and pt with coughing fit noted. spo2 on 2l was 89-90% with mod dyspnea obs and pt unable to speak in long sentences. o2 increased to 4l while recovers and sats up to 95% quickly. lasix given previously and good output noted. will monitor.
--- NOTE | 2022-05-27 13:48 | PHA.DC.MC ---
Addendum entered and electronically signed by Kalli Laboy 05/27/22 13:52: This [facility] spoke to Dr. Turner, prednisone initially written as 10mg po daily #30, asked if this is supposed to be a taper. She said it should be a taper and she will change the order. Once changed, order for #12, called and spoke to Martín in retail, she already changed to correct quantity. Original Note: Pharmacy Service has performed discharge medication reconciliation and counseling for this patient. 1. BENZONATATE 100MG PO Q4H PRN COUGH 2. PREDNISONE 40MG X 3 DAYS, 30MG X 3 DAYS, 20MG X 3 DAYS, 10MG X 3 DAYS The patient's discharge medication list was reviewed for discrepancies and discrepancies were resolved. Home Medications Myrbetriq 25 mg PO/SL DAILY bladder 05/26/22 diclofenac sodium 1 % topical gel 1 ea topical DAILY arthritis 05/26/22 duloxetine 20 mg capsule,delayed release 40 mg PO QHS arthritis 05/26/22 estradiol 0.1 mg OTHER QWEEK PRN vaginal irritation 05/26/22 fluticasone furoate 100 mcg-vilanterol 25 mcg/dose inhalation powder (Breo Ellipta) 1 inh inhalation DAILY asthma 05/26/22 furosemide 20 mg tablet 20 mg PO PRN PRN water retention 05/26/22 ketoconazole 2 % topical cream 1 applic topical QMWF dry skin 05/26/22 levothyroxine 25 mcg tablet 25 mcg PO DAILY hypothyroidism 05/26/22 losartan 50 mg tablet 50 mg PO DAILY blood pressure 05/26/22 montelukast 10 mg tablet 10 mg PO DAILY asthma 05/26/22 pantoprazole 40 mg tablet,delayed release 40 mg PO DAILY indigestion 05/26/22 potassium chloride 10 mEq tablet,extended release 10 meq PO PRN PRN supplement 05/26/22 tiotropium bromide 18 mcg capsule with inhalation device (Spiriva with HandiHaler) 18 mcg inhalation DAILY asthma 05/26/22 vitamin B12 500 mcg-folic acid 400 mcg tablet 1 tab PO QODAY supplement 05/26/22 vitamin E (dl, acetate) 400 unit chewable tablet 400 unit PO DAILY supplement 05/26/22 apixaban 5 mg tablet (Eliquis) 5 mg PO BID #0 tabs 05/27/22 benzonatate 100 mg capsule 100 mg PO Q4H PRN PRN cough 7 days #21 caps 05/27/22 prednisone 10 mg tablet See Taper PO DAILY 12 days #12 tabs 05/27/22 The patient was counseled on the following discharge medications and changes in medications for homegoing were reviewed. The Reason for Use, instructions for use, and potential side effects were reviewed for all new medications. The patient's questions regarding all of their medications were answered. The patient was able to verbally demonstrate an understanding of their discharge medications. Patient counseled by pharmacy customer care specialistMichel.
--- NOTE | 2022-05-27 15:42 | CASEMGMT ---
SALONI LE updated that patient will need 2 lpm continuously at discharge. Script received. SALONI LE in to discuss with patient. Patient states she will purchase POC from [employer] and will follow-up with them tomorrow. SALONI LE faxed script to [facility] and [facility]. Patient had no further questions or concerns at this time.
== END 2022-05-27 11:03 | disposition home or self-care (01) ==
LOC: ED 05-27 00:03 → PCU 05-27 01:28
PROVIDERS: Admitting Provider Hospitalist; Emergency Provider Emergency Medicine; Visit Provider Internal Medicine
DX: J45.901 Unspecified asthma with (acute) exacerbation (principal); J06.9 Acute upper respiratory infection, unspecified; G47.33 Obstructive sleep apnea (adult) (pediatric); Z79.01 Long term (current) use of anticoagulants; Z86.711 Personal history of pulmonary embolism; K21.9 Gastro-esophageal reflux disease without esophagitis; E03.9 Hypothyroidism, unspecified; Z79.899 Other long term (current) drug therapy; Z79.890 Hormone replacement therapy
CPT/HCPCS: 36415; 71045; 71275; 80048; 83605; 84484; 85025; 87040; 87428; 93005; 94640; 94667; 96374; 96375; 96376; 99218; 99251; 99285; Q9967; A4216; G0378; G0463; J1940; J2405